=== PATIENT | female | born 1975 ===

== ENCOUNTER 2017-04-08 08:29 | Day surgery (SDC) | payer OTHER ==
[2017-04-04 12:40] VITALS: BMI 44.2
[2017-04-08] MEDS ORDERED: Sodium Chloride 0.9% 1,000 ML IV SCH (09:00)
[2017-04-08] MEDS ORDERED: Propofol 10 mg/ml Inj (20 ML) ONE (09:21)
[2017-04-08 12:44] VITALS: BP 114/51; PULSE 58; RESP 17; TEMP 98.8; O2SAT 100
== END 2017-04-08 13:15 | disposition home or self-care (01) ==
LOC: ENDO 08:29
PROVIDERS: ATTEND Internal Medicine
DX: Z01.818 Encounter for other preprocedural examination (principal); K21.0 Gastro-esophageal reflux disease with esophagitis; K29.70 Gastritis, unspecified, without bleeding; E66.01 Morbid (severe) obesity due to excess calories; Z72.0 Tobacco use; Z98.890 Other specified postprocedural states; Z96.642 Presence of left artificial hip joint; Z98.51 Tubal ligation status; Z79.899 Other long term (current) drug therapy
CPT/HCPCS: 43239; 84703; 88305; 88342; J2001; J2704; J3010; J7040 ×2